=== PATIENT | female | born 1940 ===

== ENCOUNTER → 2020-12-14 | Outpatient (CLI) | payer MEDICARE ==
--- NOTE | 2020-12-20 13:54 | RESP ---
DATE OF SERVICE: 12/14/2020 ATTENDING PHYSICIAN: Mars Clemens MD The patient underwent full pulmonary function testing on 12/14. The FEV1 to FVC ratio was 62%, FEV1 was slightly decreased to 88% of predicted at 2.14 liters. FVC was 106% of predicted, at 3.45 liters. Total lung capacity was increased at 160% of predicted at total lung capacity of 9 liters. Residual volume was likewise increased. IMPRESSION: 1. Mild airflow limitation. 2. Residual volume increased secondary to air trapping. 3. Preserved diffusion capacity. SANTO DR: Seda TID: [id number]
== END ==
LOC: PF 10:23
PROVIDERS: ATTEND Internal Medicine
DX: R00.2 Palpitations (principal)
CPT/HCPCS: 94010; 94726; 94729